=== PATIENT | male | born 1980 | race Caucasian/White ===

== ENCOUNTER 2019-08-30 13:22 | Emergency (ER) | payer OTHER ==
[~2019-08-30] VITALS: Ht 177.8 cm; Wt 72.6 kg
[2019-08-30 13:22] VITALS: BP 131/72
[2019-08-30] MEDS ORDERED: NAPROXEN 500 MG TABLET PO ONE (14:00)
--- NOTE | 2019-08-30 14:14 | PHYS DOC ---
Past History Past Medical History: No Pertinent History Past Surgical History: No Surgical History Smoking: Non-smoker Alcohol Use: Occasionally Drug Use: None Adult General Chief Complaint Chief Complaint: CLAVICLE INJURY HPI HPI Patient is a 39-year-old male presents with left shoulder region pain. Patient was riding a sled face first down a hill when he impacted a fence pole. No loss of consciousness. He is right hand dominant. Increased pain with movement. This happened shortly prior to arrival. No pain medicine has been taken. No numbness or tingling.[] Review of Systems Review of Systems Constitutional: Denies fever or chills [] Eyes: Denies change in visual acuity, redness, or eye pain [] HENT: Denies nasal congestion or sore throat [] Respiratory: Denies cough or shortness of breath [] Cardiovascular: No chest pain or palpitations[] GI: Denies abdominal pain, nausea, vomiting, bloody stools or diarrhea [] : Denies dysuria or hematuria [] Musculoskeletal: Denies back pain, see history of present illness[] Integument: Denies rash or skin lesions [] Neurologic: Denies headache, focal weakness or sensory changes [] Endocrine: Denies polyuria or polydipsia [] All other systems were reviewed and found to be within normal limits, except as documented in this note. Current Medications Current Medications Current Medications Medications (Trade) Dose Ordered Sig/Tiara Start Time Stop Time Status Last Admin Dose Admin Naproxen (Naprosyn) 500 mg 1X ONCE 08/30/19 14:00 08/30/19 14:01 UNV Physical Exam Physical Exam Constitutional: Well developed, well nourished, mild discomfort, non-toxic appearance. [] HENT: Normocephalic, atraumatic, bilateral external ears normal, oropharynx moist, no oral exudates, nose normal. [] Eyes: PERRLA, EOMI, conjunctiva normal, no discharge. [] Neck: Normal range of motion, no tenderness, supple, no stridor. [] Cardiovascular:Heart rate regular rhythm, no murmur [] Lungs & Thorax: Bilateral breath sounds clear to auscultation [] Abdomen: Bowel sounds normal, soft, no tenderness, no masses, no pulsatile masses. [] Skin: Warm, dry, no erythema, no rash. [] Back: No tenderness, no CVA tenderness. [] Extremities: Tenderness along the left tricep, clavicle, and scapula. Full active range of motion left shoulder. No midline cervical spine tenderness. No crepitus. Left side is distally neurovascularly intact. The other 3 extremities show: No tenderness, no cyanosis, no clubbing, ROM intact, no edema. [] Neurologic: Alert and oriented X 3, normal motor function, normal sensory function, no focal deficits noted. [] Psychologic: Affect normal, judgement normal, mood normal. [] EKG EKG [] Radiology/Procedures Radiology/Procedures PROCEDURE: CT CERVICAL SPINE WO CONTRAST CT cervical spine. HISTORY: Sledding accident, hit fence pole, neck pain Axial CT images were obtained to the cervical spine. Sagittal and coronal reconstructed images were reviewed. A C-spine fracture is not identified. Thyroid is homogeneous. C-spine is in normal alignment. Disc spaces are normal in height. IMPRESSION: 1. No acute fracture noted in the cervical spine. PROCEDURE: CLAVICLE LEFT 2 views left clavicle and 3 views left scapula dated 08/30/2019. No comparison available. Clinical data indication: Pain after injury. FINDINGS: 2 views of clavicle show normal bony alignment. No displaced fracture. No acute osseous or articular abnormality. 3 views left scapula show normal bony alignment. No displaced fracture. No acute osseous or articular abnormality. IMPRESSION: No acute findings.[] Course & Med Decision Making Course & Med Decision Making Pertinent Labs and Imaging studies reviewed. (See chart for details) Emergency department course: Patient arrived, was placed in bed, and tolerated exam we[] He was given pain medicine. He was transferred to and from radiology with any consultations. After return of imaging findings, these were discussed with patient and family who voiced understanding. All questions were answered. He was discharged in improved condition with his driving home. Maria D decision making: There is no evidence of fracture, subluxation, cervical spine injury, nor spinal cord syndrome. No evidence of a pneumothorax. Dragon Disclaimer Dragon Disclaimer This electronic medical record was generated, in whole or in part, using a voice recognition dictation system. Departure Departure: Impression: Primary Impression: Contusion Disposition: 01 HOME, SELF-CARE Condition: IMPROVED Patient Instructions: Contusion Additional Instructions: Follow-up with your regular doctor in 2 days. Take the medication as prescribed. Return to the ER if worsening pain, difficulty breathing, or any other concerns. Scripts Orphenadrine Citrate (ORPHENADRINE CITRATE) 100 Mg Tablet.er 100 MG PO BID for BACK PAIN, #20 TAB.SR Prov: PARISH SANTANA DO 08/30/19 Meloxicam (MELOXICAM) 7.5 Mg Tablet 7.5 MG PO DAILY for PAIN, #20 TAB Prov: PARISH SANTANA DO 08/30/19 Problem Qualifiers Primary Impression: Contusion Encounter type: initial encounter Contusion area: shoulder Laterality: left Qualified Codes: S40.012A - Contusion of left shoulder, initial encounter PARISH SANTANA DO Aug 30, 2019 14:14
[2019-08-30] MEDS ORDERED: HYDROcodone/APAP 5/325MG 1 TAB TABLET PO ONE (14:15)
--- NOTE | 2019-08-30 14:35 | RAD ---
2 views left clavicle and 3 views left scapula dated 08/30/2019. No comparison available. Clinical data indication: Pain after injury. FINDINGS: 2 views of clavicle show normal bony alignment. No displaced fracture. No acute osseous or articular abnormality. 3 views left scapula show normal bony alignment. No displaced fracture. No acute osseous or articular abnormality. IMPRESSION: No acute findings. Electronically signed by: Jordan Vides MD (08/30/2019 2:33 PM) [facility] [place]
--- NOTE | 2019-08-30 14:35 | RAD ---
2 views left clavicle and 3 views left scapula dated 08/30/2019. No comparison available. Clinical data indication: Pain after injury. FINDINGS: 2 views of clavicle show normal bony alignment. No displaced fracture. No acute osseous or articular abnormality. 3 views left scapula show normal bony alignment. No displaced fracture. No acute osseous or articular abnormality. IMPRESSION: No acute findings. Electronically signed by: Jordan Vides MD (08/30/2019 2:33 PM) [facility] [place]
--- NOTE | 2019-08-30 14:39 | RAD ---
CT cervical spine. HISTORY: Sledding accident, hit fence pole, neck pain Axial CT images were obtained to the cervical spine. Sagittal and coronal reconstructed images were reviewed. A C-spine fracture is not identified. Thyroid is homogeneous. C-spine is in normal alignment. Disc spaces are normal in height. IMPRESSION: 1. No acute fracture noted in the cervical spine. PQRS Compliance Statement: One or more of the following individualized dose reduction techniques were utilized for this examination: 1. Automated exposure control 2. Adjustment of the mA and/or kV according to patient size 3. Use of iterative reconstruction technique Electronically signed by: Chris Pena MD (08/30/2019 2:36 PM) [id number]
[2019-08-30] MEDS ORDERED: ORPH-16 PO (15:01)
[2019-08-30] MEDS ORDERED: MELO7.5T29 PO (15:01)
== END 2019-08-30 15:10 | disposition home or self-care (01) ==
LOC: ER 13:22
DX: S40.012A Contusion of left shoulder, initial encounter (principal); W22.09XA Striking against other stationary object, initial encounter; Y93.I9 Activity, other involving external motion; Y92.828 Other wilderness area as the place of occurrence of the external cause; Y99.8 Other external cause status
CPT/HCPCS: 72125; 73000; 73010; 99284-25